=== PATIENT | female | born 1960 | race Two or more races ===

== ENCOUNTER 2017-09-20 22:44 | Emergency (ER) | payer SELFPAY ==
[~2017-09-20] VITALS: Ht 152.4 cm; Wt 83.0 kg
[2017-09-21 00:24] VITALS: BP 111/68
== END 2017-09-21 00:24 | disposition home or self-care (01) ==
LOC: ED 22:44
DX: T78.1XXA Other adverse food reactions, not elsewhere classified, initial encounter (principal); X58.XXXA Exposure to other specified factors, initial encounter
CPT/HCPCS: J1200

== ENCOUNTER 2018-12-16 21:25 | Emergency (ER) | payer OTHER ==
[~2018-12-16] VITALS: Ht 154.9 cm; Wt 70.8 kg
[2018-12-16 21:41] VITALS: Ht 154.9 cm; Wt 70.8 kg
[2018-12-16 22:57] LABS: BASOPHIL % 0.6 % (0-2); PLATELET COUNT 189 x10^3mcL (130-400); RED CELL DISTRIBUTION WIDTH 14.1 % (11.5-14.5)
[2018-12-16 23:13] LABS: CALCIUM 8.6 mg/dL (8.5-10.1); CARBON DIOXIDE 30.7 mmol/L (21-32); CHLORIDE SERUM 107 mmol/L (98-107); CREATININE SERUM 0.6 mg/dL (0.6-1.0); GFR1 > 60 mL/min; GLUCOSE SERUM 97 mg/dL (74-106); SODIUM SERUM 144 mmol/L (136-145)
[2018-12-16 23:20] LABS: ALBUMIN 3.6 g/dL (3.4-5.0); ALKALINE PHOSPHATASE 89 U/L (46-116); ALT/SGPT 15 U/L (14-59); AST/SGOT 13 U/L (15-37); BILIRUBIN TOTAL 0.22 mg/dL (0.20-1.00); CHOLESTEROL 190 mg/dL (<200); CHOLESTEROL/HDL RATIO 3.3; HDL CHOLESTEROL 57 mg/dL (40-60); LIPASE 90 IU/L (73-393); TOTAL PROTEIN, SERUM 7.1 g/dL (6.4-8.2); TRIGLYCERIDES 115 mg/dL (<150)
[2018-12-16 23:36] LABS: FREE T4 1.11 ng/dL (0.76-1.46); FREE THYROXINE INDEX 3.3 ug/dL (1.4-4.5); T4(THYROXINE) 9.9 ug/dL (4.7-13.3)
[2018-12-16 23:45] LABS: T3 TOTAL 1.05 ng/mL
[2018-12-17 01:54] VITALS: BP 128/48
== END 2018-12-17 01:54 | disposition home or self-care (01) ==
LOC: ED 21:25
PROVIDERS: Specialist
DX: H81.10 Benign paroxysmal vertigo, unspecified ear (principal)
CPT/HCPCS: 82962; 83880; 84439; J8597; Q0092